=== PATIENT | female | born 1955 | race Caucasian/White ===

== ENCOUNTER 2021-08-26 08:35 | Outpatient (CLI) | payer MEDICARE, OTHER ==
[2021-08-26] VITALS (13 sets, daily range): BP systolic 138–164; BP diastolic 55–86
[~2021-08-26] VITALS: Ht 177.8 cm; Wt 90.9 kg
[2021-08-26] MEDS ORDERED: LIDOCAINE 1% PF 2 ML VIAL. ONE (09:06)
[2021-08-26] MEDS ORDERED: IODIXANOL 320 MG/ML 100 ML VIAL. ONE (09:06)
[2021-08-26] MEDS ORDERED: HEPARIN for ARTERIAL LINE 1,500 ML ONE (09:07)
[2021-08-26] MEDS ORDERED: HEPARIN for IV BOLUS 10,000 UNIT/10 ML VIAL. ONE (09:23)
[2021-08-26] MEDS ORDERED: fentaNYL PF VIAL 100 MCG/2 ML VIAL ONE (09:23)
[2021-08-26] MEDS ORDERED: MIDAZOLAM HCL/PF 2 MG/2 ML VIAL. ONE ×2 (09:23→10:05)
[2021-08-26] MEDS ORDERED: NITROGLYCERIN 200 MCG/2 ML SYRINGE FOR CATH/VASC LAB. ONE (09:24)
[2021-08-26] MEDS ORDERED: NARA1TAB PO (09:27)
[2021-08-26] MEDS ORDERED: ASPI-886 PO (09:27)
[2021-08-26] MEDS ORDERED: BIOT5000 PO (09:27)
[2021-08-26] MEDS ORDERED: ICOS1CAP PO (09:27)
[2021-08-26] MEDS ORDERED: ALPR0.5T PO (09:27)
[2021-08-26] MEDS ORDERED: IRBE300T PO (09:27)
[2021-08-26] MEDS ORDERED: ISOS30TA68 PO (09:27)
[2021-08-26] MEDS ORDERED: HYDR12.58 PO (09:27)
[2021-08-26] MEDS ORDERED: OMEP20CA16 PO (09:27)
[2021-08-26] MEDS ORDERED: MECO10005 PO (09:27)
[2021-08-26] MEDS ORDERED: CHOL200044 PO (09:27)
[2021-08-26] MEDS ORDERED: HEPARIN for IV BOLUS 10,000 UNIT/10 ML VIAL. IART ONE (09:30)
[2021-08-26] MEDS ORDERED: fentaNYL PF VIAL 100 MCG/2 ML VIAL IV ONE (09:30)
[2021-08-26] MEDS ORDERED: NITROGLYCERIN 200 MCG/2 ML SYRINGE FOR CATH/VASC LAB. IART ONE (09:30)
[2021-08-26] MEDS ORDERED: MIDAZOLAM HCL/PF 2 MG/2 ML VIAL. IV ONE (09:30)
[2021-08-26] MEDS ORDERED: IODIXANOL 320 MG/ML 100 ML VIAL. IART ONE (09:30)
[2021-08-26] MEDS ORDERED: LIDOCAINE 1% PF 2 ML VIAL. INJ ONE (09:30)
[2021-08-26 09:38] LABS: GFR 55.3; POTASSIUM 3.8 mmol/L (3.5-5.1)
[2021-08-26 09:41] LABS: HEMOGLOBIN 13.7 g/dL (12.0-15.5); RED BLOOD COUNT 4.65 x10^6/uL (3.50-5.40); RED CELL DISTRIBUTION WIDTH 13.9 % (11.5-14.5); WHITE BLOOD COUNT 6.1 x10^3/uL (4.0-11.0)
[2021-08-26 09:52] LABS: PROTHROMBIN TIME PATIENT 12.1 SEC (11.7-14.0)
--- NOTE | 2021-08-26 12:01 | CARD ---
MR#: [id number] Date of Study: 08/26/2021 Ordering Physician: SHIVAM LEA, Referring Physician: SHIVAM LEA, Tech: Danika Castelan APPROVED REPORT Technologist: Danika Castelan Nurse: Naomi Pool RN Procedure(s) performed: fl time: 3.3 min dose: 41 gycm2 contrast: 54 ml moderate sedation: 32 min Coronary angiography INDICATION The indication(s) include : unstable angina . [facility] Clinical Frailty Scale [facility] Clinical Frailty Scale: Managing Well Heart Failure Heart Failure: No CASE TECHNIQUE IV conscious sedation was used throughout procedure with appropriate monitoring and was performed in the presence of a registered nurse who was an independent trained observer other than the physician p erforming the procedure. During this case, Fluoroscopy and low osmolar contrast were used for imaging . Specimen(s) Removed: N/A Estimated Blood loss: 15 cc's. PROCEDURE NARRATIVE Clinical information: 66-year-old woman who presents to the hospital in the setting of unstable angina with recurrent chest pain within 1 week in the setting of prior history of hypertension, tobacco abuse. Informed consent: Written informed consent was obtained from the patient after adequate discussion of the risks and valentin efits of the procedure. Procedure details: ACCESS: The right wrist was prepped and draped in usual sterile fashion. Under 1% lidocaine local anesthesia a 6 Italian Terumo sheath was placed in the right radial artery via the Seldinger technique. DIAGNOSTIC ANGIOGRAPHY: Right and left coronary arteries were engaged with a 6 Italian TIG catheter. Diagnostic angiography i n multiple views were obtained. All catheters were exchanged over J-tip guidewire. FINDINGS: ======= Aorta: 150/80 Left ventriculogram: Deferred. Coronary angiography: LM: Large caliber vessel with normal angiographic appearance LAD: Large caliber vessel with a proximal 30% stenosis. D1: Moderate caliber vessel with mild luminal irregularities. Ramus: Moderate caliber vessel with mild luminal irregularities. LCX: Moderate caliber non-dominant vessel with mild luminal irregularities OM1: Moderate caliber vessel with normal angiographic appearance RCA: Large caliber dominant vessel with a mid 30% stenosis. RPDA: Moderate caliber vessel with mild luminal irregularities. CLOSURE: At case completion the right radial sheath was removed and a Terumo radial band was applied with 11 m L of air. Hemostasis was achieved. COMPLICATIONS: No acute complications noted Conclusion 1. Mild non-obstructive coronary disease. 2. Patient has multiple statin and PCSK-9 allergies, may consider inclisiran therapy when available. Recommendations Aggressive Medical Therapy Signed by : Shivam Lea, Electronically Approved : 08/26/2021 12:00:50
--- NOTE | 2021-08-26 13:41 | NUR ---
Discharge Note: ISIDRO ARORA ACCShan Discharge instructions and discharge home medications reviewed with Patient and a copy given. All questions have been answered and understanding verbalized. The following instructions and handouts were given: radial site care & adult moderate sedation Discontinued lines and drains: Peripheral IV intact. Patient discharged to Home or Self Care withSpousevia Wheelchair
--- NOTE | 2021-08-26 16:13 | CARD ---
MR#: [id number] Date of Study: 08/26/2021 Ordering Physician: SHIVAM LEA, Referring Physician: SHIVAM LEA, Tech: [place] [facility] APPROVED REPORT EXAM: Two-dimensional and M-mode echocardiogram with Doppler and color Doppler. Other Information Quality : FairHR: 74bpm Rhythm : NSRTechnically limited study due to body habitus. INDICATION Chest Pain Chest pressure RISK FACTORS Hypertension Obesity Hyperlipidemia Family History 2D DIMENSIONS Left Atrium(2D)3.1 (1.6-4.0cm)IVSd1.4 (0.7-1.1cm) Aortic Root(2D)3.4 (2.0-3.7cm)LVDd4.7 (3.9-5.9cm) LVOT Diameter2.2 (1.8-2.4cm)PWd1.4 (0.7-1.1cm) LVDs3.0 (2.5-4.0cm)FS (%) 34.9 % SV64.6 mlLVEF(%)64.2 (>50%) Aortic Valve AoV Peak Terry.117.3cm/sAoV VTI24.9cm AO Peak GR.5.5mmHgLVOT VTI 18.63cm AO Mean GR.4mmHg Mitral Valve MV E Dlhmkbtx84.7cm/sMV E Peak Gr.5mmHg MV DECEL [id number] A Sstirpxi14.8cm/s MV E Mean Gr.1mmHgE/A Ratio0.8 TDI Lateral E' P. V5.79cm/sMedial E' P. V10.17cm/s E/Lateral E'11.2E/Medial E'6.4 Tricuspid Valve TR P. Alsfcpzl073fb/sTR Peak Gr.13mmHg Pulmonary Vein S1 Nrpetgzt01.3cm/sS2 Olvvchip91.83cm/s D2 Glxupyyh59.8cm/s LEFT VENTRICLE The left ventricle is normal size. There is mild concentric left ventricular hypertrophy. The left ve ntricular systolic function is normal. The ejection fraction is 55-60%. There is normal LV segmental wall motion. Transmitral Doppler flow pattern is Grade I-abnormal relaxation pattern. No left ventric le thrombus noted on this study. There is no ventricular septal defect visualized. There is no left v entricular aneurysm. There is no mass noted in the left ventricle. RIGHT VENTRICLE The right ventricle is normal size. There is normal right ventricular wall thickness. The right ventr icular systolic function is normal. ATRIA The left atrium is borderline dilated. The right atrium size is normal. The interatrial septum is int act with no evidence for an atrial septal defect or patent foramen ovale as noted on 2-D or Doppler i maging. AORTIC VALVE The aortic valve is normal in structure and function. Doppler and Color Flow revealed no significant aortic regurgitation. There is no significant aortic valvular stenosis. There is no aortic valvular v egetation. MITRAL VALVE The mitral valve is normal in structure and function. There is no evidence of mitral valve prolapse. There is no mitral valve stenosis. Doppler and Color-flow revealed trace mitral regurgitation. TRICUSPID VALVE The tricuspid valve is normal in structure and function. Doppler and Color Flow revealed no tricuspid valve regurgitation noted. There is no tricuspid valve prolapse or vegetation. There is no tricuspid valve stenosis. PULMONIC VALVE The pulmonary valve is normal in structure and function. Doppler and Color Flow revealed no pulmonic valvular regurgitation. There is no pulmonic valvular stenosis. GREAT VESSELS The aortic root is normal in size. The ascending aorta is normal in size. The pulmonary artery is nor mal. The IVC is normal in size and collapses >50% with inspiration. PERICARDIAL EFFUSION There is no pleural effusion. There is no evidence of significant pericardial effusion. Critical Notification Critical Value: No <Conclusion> The left ventricular systolic function is normal. The ejection fraction is 55-60%. There is normal LV segmental wall motion. Transmitral Doppler flow pattern is Grade I-abnormal relaxation pattern. Trace mitral regurgitation. There is no evidence of significant pericardial effusion. Signed by : Adarsh Peck, Electronically Approved : 08/26/2021 16:13:37
== END 2021-08-26 13:50 | disposition home or self-care (01) ==
LOC: CCL 08:35
PROVIDERS: ATTEND Internal Medicine Cardiovascular Disease
DX: I20.0 Unstable angina (principal); I10 Essential (primary) hypertension; E78.00 Pure hypercholesterolemia, unspecified; E11.9 Type 2 diabetes mellitus without complications; F41.9 Anxiety disorder, unspecified; Z79.82 Long term (current) use of aspirin; Z79.899 Other long term (current) drug therapy; Z88.1 Allergy status to other antibiotic agents; Z91.040 Latex allergy status; Z88.8 Allergy status to other drugs, medicaments and biological substances
CPT/HCPCS: 36415; 80048; 85027; 85610; 93306; 93454; 99152; 99153; C1769; C1894; J1644; J2250; J3010; J3490; Q9967; C8929